=== PATIENT | male | born 1985 | race Two or more races ===

== ENCOUNTER 2016-06-14 10:12 | Emergency (ER) | payer OTHER ==
[2016-06-14 12:52] VITALS: BP 121/78
== END 2016-06-14 12:52 | disposition home or self-care (01) ==
LOC: ED 10:12
DX: R07.9 Chest pain, unspecified (principal)
CPT/HCPCS: J1885; Q0092

== ENCOUNTER 2016-08-01 20:17 | Emergency (ER) | payer OTHER ==
[2016-08-01 21:00] VITALS: BP 116/78
== END 2016-08-01 23:52 | disposition home or self-care (01) ==
LOC: ED 20:17
DX: S43.401A Unspecified sprain of right shoulder joint, initial encounter (principal); S63.501A Unspecified sprain of right wrist, initial encounter; W06.XXXA Fall from bed, initial encounter; Y93.89 Activity, other specified; Y92.89 Other specified places as the place of occurrence of the external cause; Y99.8 Other external cause status

== ENCOUNTER 2016-12-23 14:56 | Emergency (ER) | payer OTHER ==
[2016-12-23 15:57] VITALS: BP 119/75
== END 2016-12-23 15:57 | disposition home or self-care (01) ==
LOC: ED 14:56
DX: M54.5 Low back pain (principal)

== ENCOUNTER 2017-01-16 12:09 | Emergency (ER) | payer OTHER ==
[2017-01-16 14:27] LABS: BASOPHIL % 0.5 % (0-2); PLATELET COUNT 203 x10^3mcL (130-400); RED CELL DISTRIBUTION WIDTH 13.7 % (11.5-14.5)
[2017-01-16 14:39] LABS: CALCIUM 9.1 mg/dL (8.5-10.1); CHLORIDE SERUM 105 mmol/L (98-107); CREATININE SERUM 0.8 mg/dL (0.7-1.3); GFR1 > 60 mL/min; GLUCOSE SERUM 92 mg/dL (74-106); POTASSIUM SERUM 3.8 mmol/L (3.5-5.1); SODIUM SERUM 140 mmol/L (136-145)
[2017-01-16 14:44] LABS: ALBUMIN 4.1 g/dL (3.4-5.0); ALKALINE PHOSPHATASE 111 U/L (46-116); ALT/SGPT 29 U/L (16-63); AMYLASE 79 U/L (25-115); AST/SGOT 15 U/L (15-37); BILIRUBIN TOTAL 0.8 mg/dL (0.20-1.00); LIPASE 130 IU/L (73-393); TOTAL PROTEIN, SERUM 7.9 g/dL (6.4-8.2)
[2017-01-16 17:16] VITALS: BP 119/68
== END 2017-01-16 17:16 | disposition home or self-care (01) ==
LOC: ED 12:09
PROVIDERS: Emergency Medicine
DX: D16.9 Benign neoplasm of bone and articular cartilage, unspecified (principal)
CPT/HCPCS: 36415; G0480; Q0092

== ENCOUNTER 2017-02-09 10:35 | Emergency (ER) | payer OTHER ==
[~2017-02-09] VITALS: Ht 152.4 cm; Wt 60.5 kg
[2017-02-09 11:26] LABS: UA SPECIFIC GRAVITY >=1.030 (1.005-1.035); microscopic required? YES; urine erythrocyte NEGATIVE (NEGATIVE)
[2017-02-09 11:39] LABS: BASOPHIL % 0.5 % (0-2); PLATELET COUNT 198 x10^3mcL (130-400); RED CELL DISTRIBUTION WIDTH 13.2 % (11.5-14.5)
[2017-02-09 11:50] LABS: CALCIUM 8.9 mg/dL (8.5-10.1); CARBON DIOXIDE 26.9 mmol/L (21-32); CHLORIDE SERUM 108 mmol/L (98-107); CREATININE SERUM 0.8 mg/dL (0.7-1.3); GFR1 > 60 mL/min; GLUCOSE SERUM 92 mg/dL (74-106); POTASSIUM SERUM 3.9 mmol/L (3.5-5.1); SODIUM SERUM 142 mmol/L (136-145)
[2017-02-09 11:55] LABS: ALBUMIN 3.8 g/dL (3.4-5.0); ALKALINE PHOSPHATASE 94 U/L (46-116); ALT/SGPT 29 U/L (16-63); AMYLASE 60 U/L (25-115); AST/SGOT 15 U/L (15-37); BILIRUBIN TOTAL 0.7 mg/dL (0.20-1.00); LIPASE 98 IU/L (73-393); TOTAL PROTEIN, SERUM 7.4 g/dL (6.4-8.2)
[2017-02-09 14:50] VITALS: BP 106/68
== END 2017-02-09 14:50 | disposition home or self-care (01) ==
LOC: ED 10:35
PROVIDERS: Emergency Medicine
DX: R10.32 Left lower quadrant pain (principal)
CPT/HCPCS: J1885; J2405

== ENCOUNTER 2017-03-03 19:15 | Emergency (ER) | payer OTHER ==
[~2017-03-03] VITALS: Ht 162.6 cm; Wt 62.1 kg
[2017-03-03 21:17] VITALS: BP 101/58; Ht 162.6 cm; Wt 62.1 kg
== END 2017-03-04 03:17 | disposition left against medical advice (07) ==
LOC: ED 19:15
DX: Z53.21 Procedure and treatment not carried out due to patient leaving prior to being seen by health care provider (principal)

== ENCOUNTER 2017-03-04 08:05 | Emergency (ER) | payer OTHER ==
[~2017-03-04] VITALS: Ht 157.5 cm; Wt 60.8 kg
[2017-03-04 08:17] VITALS: BP 111/76; Ht 157.5 cm; Wt 60.8 kg
== END 2017-03-04 10:34 | disposition left against medical advice (07) ==
LOC: ED 08:05
DX: Z53.21 Procedure and treatment not carried out due to patient leaving prior to being seen by health care provider (principal)